=== PATIENT | female | born 1995 | race Caucasian/White ===

== ENCOUNTER 2023-04-03 08:00 | Outpatient (CLI) | payer MEDICAID ==
[2023-04-03 14:54] LABS: CHLAMYDIA TRACHOMATIS DNA NEGATIVE (NEGATIVE); NEISSERIA GONORRHOEAE DNA NEGATIVE (NEGATIVE)
[2023-04-03 17:05] LABS: BACTERIAL VAGINOSIS DNA POSITIVE (NEGATIVE); CANDIDA GLABRATA DNA NEGATIVE (NEGATIVE); CANDIDA GROUP DNA NEGATIVE (NEGATIVE); CANDIDA KRUSEI DNA NEGATIVE (NEGATIVE); TRICHOMONAS VAGINALIS DNA NEGATIVE (NEGATIVE)
== END 2023-04-03 23:59 | disposition home or self-care (01) ==
LOC: LAB.WC 08:00
PROVIDERS: ATTEND Nurse Practitioner
DX: N89.8 Other specified noninflammatory disorders of vagina (principal); Z11.3 Encounter for screening for infections with a predominantly sexual mode of transmission
CPT/HCPCS: 81514; 87491; 87591; 87661

== ENCOUNTER 2023-04-03 09:54 | Outpatient (CLI) | payer MEDICAID ==
[2023-04-03 10:10] LABS: BASOPHILS % (AUTO) 0.3 %; EOSINOPHILS # (AUTO) 0.2 10^3/uL (0.0-0.7); EOSINOPHILS % (AUTO) 2.4 %; HCT - HEMATOCRIT 36.6 % (37.0-47.0); HGB - HEMOGLOBIN 12.4 g/dL (12.0-16.0); LYMPHOCYTES # (AUTO) 1.6 10^3/uL (1.5-3.5); LYMPHOCYTES % (AUTO) 23.2 %; MEAN CORPUSCULAR HEMOGLOBIN 29.2 pg (27.0-31.0); MEAN CORPUSCULAR HGB CONC 33.9 g/dL (32.0-36.0); MEAN CORPUSCULAR VOLUME 86.1 fL (81.0-99.0); MEAN PLATELET VOLUME 10.4 fL (7.9-10.8); MONOCYTES # (AUTO) 0.5 10^3/uL (0.0-1.0); MONOCYTES % (AUTO) 7.7 %; NEUTROPHILS # (AUTO) 4.5 10^3/uL (1.5-6.6); NEUTROPHILS % (AUTO) 66.3 %; PLT - PLATELET COUNT 223 10^3/uL (130-450); RED BLOOD COUNT 4.25 10^6/uL (4.20-5.40); RED CELL DISTRIBUTION WIDTH 11.6 % (12.0-15.0); WHITE BLOOD COUNT 6.7 x10^3/uL (4.8-10.8)
[2023-04-04 04:08] LABS: RPR Non Reactive (Non Reactive)
[2023-04-04 05:13] LABS: HBsAG SCREEN Negative (Negative)
[2023-04-04 09:10] LABS: HCV AB Non Reactive (Non Reactive); HIV SCREEN 4TH GENERATION Non Reactive (Non Reactive)
[2023-04-04 10:09] LABS: VARICELLA-ZOSTER AB IGG 1443 index (Immune >165)
== END 2023-04-03 09:55 | disposition home or self-care (01) ==
LOC: LAB 09:54
PROVIDERS: ATTEND Nurse Practitioner
DX: O99.891 Other specified diseases and conditions complicating pregnancy (principal); N89.8 Other specified noninflammatory disorders of vagina
CPT/HCPCS: 36415; 81514; 85025; 86592; 86762; 86787; 86803; 86850; 86900; 86901; 87340; 87389; 87491; 87591; 87661

== ENCOUNTER 2023-04-04 07:56 | Outpatient (CLI) | payer MEDICAID ==
--- NOTE | 2023-04-04 10:10 | Ultrasound Report ---
PROCEDURE: OB First Trimester w/TV INDICATIONS: POSITIVE TEST OUTSIDE/PRIOR DATING DATA: Last menstrual period (LMP): 01/10/2023. LMP-based estimated date of delivery (KENNEDI): 10/17/2023. First dating scan (date and location): 04/04/2023. Estimated date of delivery (KENNEDI) from first dating scan: 11/06/2023. TECHNIQUE: Real-time scanning was performed of the fetus and maternal pelvic organs, with image documentation. Endovaginal scanning was also performed to better visualize the fetus and maternal ovaries. COMPARISON: None FINDINGS: Heart base 166 bpm. Gassaway-rump length is 2.4 cm, corresponding to an ultrasound age of 9 w eeks and 1 day. Yolk sac is present. IMPRESSION: Living intrauterine gestation at an ultrasound age of 9 weeks and 1 day. Please note this is not conc ordant with reported LMP and clinical correlation is necessary. Reviewed by: Horace Denney MD on 04/04/2023 10:08 AM PDT Approved by: Horace Denney MD on 04/04/2023 10:08 AM PDT Station ID: [id number]
== END 2023-04-04 07:57 | disposition home or self-care (01) ==
LOC: DI 07:56
PROVIDERS: ATTEND Nurse Practitioner
DX: Z34.91 Encounter for supervision of normal pregnancy, unspecified, first trimester (principal)

== ENCOUNTER 2023-04-10 10:29 | Outpatient (CLI) | payer MEDICAID | END 2023-04-10 10:30 | disposition home or self-care (01) | LOC: LAB 10:29 | PROVIDERS: ATTEND Nurse Practitioner | DX: Z53.9 Procedure and treatment not carried out, unspecified reason (principal) ==

== ENCOUNTER 2023-05-02 08:00 | Outpatient (CLI) | payer MEDICAID ==
[2023-05-02 20:16] LABS: BACTERIAL VAGINOSIS DNA POSITIVE (NEGATIVE); CANDIDA GLABRATA DNA NEGATIVE (NEGATIVE); CANDIDA GROUP DNA NEGATIVE (NEGATIVE); CANDIDA KRUSEI DNA NEGATIVE (NEGATIVE); TRICHOMONAS VAGINALIS DNA NEGATIVE (NEGATIVE)
== END 2023-05-02 23:59 | disposition home or self-care (01) ==
LOC: LAB.WC 08:00
PROVIDERS: ATTEND Nurse Practitioner
DX: N89.8 Other specified noninflammatory disorders of vagina (principal)
CPT/HCPCS: 81514

== ENCOUNTER 2023-05-29 08:00 | Outpatient (CLI) | payer MEDICAID ==
[2023-05-29 19:45] LABS: BACTERIAL VAGINOSIS DNA NEGATIVE (NEGATIVE); CANDIDA GLABRATA DNA NEGATIVE (NEGATIVE); CANDIDA GROUP DNA NEGATIVE (NEGATIVE); CANDIDA KRUSEI DNA NEGATIVE (NEGATIVE); TRICHOMONAS VAGINALIS DNA NEGATIVE (NEGATIVE)
== END 2023-05-29 23:59 | disposition home or self-care (01) ==
LOC: LAB.WC 08:00
PROVIDERS: ATTEND Nurse Practitioner
DX: N89.8 Other specified noninflammatory disorders of vagina (principal)
CPT/HCPCS: 81514

== ENCOUNTER 2023-06-27 08:00 | Outpatient (CLI) | payer MEDICAID ==
[2023-06-27 19:53] LABS: BACTERIAL VAGINOSIS DNA NEGATIVE (NEGATIVE); CANDIDA GLABRATA DNA NEGATIVE (NEGATIVE); CANDIDA GROUP DNA NEGATIVE (NEGATIVE); CANDIDA KRUSEI DNA NEGATIVE (NEGATIVE); TRICHOMONAS VAGINALIS DNA NEGATIVE (NEGATIVE)
== END 2023-06-27 23:59 | disposition home or self-care (01) ==
LOC: LAB.WC 08:00
PROVIDERS: ATTEND Nurse Practitioner
DX: N89.8 Other specified noninflammatory disorders of vagina (principal)
CPT/HCPCS: 81514

== ENCOUNTER 2023-07-03 07:16 | Outpatient (CLI) | payer MEDICAID ==
--- NOTE | 2023-07-03 15:31 | Ultrasound Report ---
PROCEDURE: OB Detailed Eval INDICATIONS: SUPERVISION OF OUTSIDE/PRIOR DATING DATA: Last menstrual period (LMP): 01/10/2023. LMP-based estimated date of delivery (KENNEDI): 10/17/2023. First dating scan (date and location): 04/04/2023. Estimated date of delivery (KENNEDI) from first dating scan: 11/06/2023. TECHNIQUE: Real-time scanning was performed of the fetus, with image documentation and biometric measurements. Endovaginal scanning: Not performed COMPARISON: 04/04/2023 FINDINGS: General: A single living intrauterine gestation is present. Presentation: Cephalic Placenta: Placental position is posterior, without previa. Amniotic fluid index: 16.5 cm, within normal limits for gestational age. heart rate: 148 beats per minute. Maternal cervical canal: 3.4 cm long; normal length is 2.5 cm or more. biometrics: Biparietal diameter: 5.3 cm 22 weeks 2 days Head circumference: 20.4 cm 22 weeks 4 days Abdominal circumference: 18.0 cm 22 weeks 6 days Femur length: 3.7 cm 22 weeks 0 days gestational age from initial scan: 22 weeks 0 days Composite gestational age from present scan: 22 weeks 0 days Estimated weight and percentile: 511 g, 71st percentile Measurement variability in biometric dating: +/- 10 days from 12-20 weeks gestation, +/- 2 weeks from 20-30 weeks gestation, +/- 3 weeks at 30 weeks gestation or later. Anatomic survey: Neuro: Ventricles are normal at less than 10 mm. Cisterna magna is normal at 3-11 mm. Cerebellum i s normal in size and morphology. Nuchal skin fold: Not measured due to gestational age, no overt thickening visualized Face: Nose and lips, facial profile are normal. Spine: No evidence for spina bifida. Heart: 4-chambered heart is present, with normal ventricular outflow tracts. Diaphragm: Diaphragm is intact. Stomach: Left-sided stomach is present. Kidneys: No hydronephrosis. Normal is less than 5 mm in 2nd trimester, less than 7 mm in 3rd trimester. Cord: 3 vessel cord has orthotopic insertion. Bladder: Normal in size. Extremities: All 4 extremities are visualized. IMPRESSION: 1. Single living intrauterine . 2. Normal second trimester anatomy survey. No anatomic anomalies detected at this time. Reviewed by: Jarad Hardy MD on 07/03/2023 3:30 PM PDT Approved by: Jarad Hardy MD on 07/03/2023 3:30 PM PDT Station ID: [id number]
== END 2023-07-03 07:17 | disposition home or self-care (01) ==
LOC: DI 07:16
PROVIDERS: ATTEND Nurse Practitioner Obstetrics & Gynecology
DX: Z34.02 Encounter for supervision of normal first pregnancy, second trimester (principal); Z36.89 Encounter for other specified antenatal screening

== ENCOUNTER 2023-08-18 08:02 | Outpatient (CLI) | payer MEDICAID ==
[2023-08-18 15:25] LABS: HCT - HEMATOCRIT 36.2 % (37.0-47.0); HGB - HEMOGLOBIN 11.2 g/dL (12.0-16.0); MEAN CORPUSCULAR HEMOGLOBIN 29.8 pg (27.0-31.0); MEAN CORPUSCULAR HGB CONC 30.9 g/dL (32.0-36.0); MEAN CORPUSCULAR VOLUME 96.3 fL (81.0-99.0); MEAN PLATELET VOLUME 11.4 fL (7.9-10.8); RED BLOOD COUNT 3.76 10^6/uL (4.20-5.40); RED CELL DISTRIBUTION WIDTH 12.2 % (12.0-15.0); WHITE BLOOD COUNT 9.8 x10^3/uL (4.8-10.8)
== END 2023-08-18 08:03 | disposition home or self-care (01) ==
LOC: LAB.S 08:02
PROVIDERS: ATTEND Nurse Practitioner Obstetrics & Gynecology
DX: Z36.9 Encounter for antenatal screening, unspecified (principal)
CPT/HCPCS: 36415; 82950; 85027

== ENCOUNTER 2023-11-15 14:59 | Inpatient (IN) | payer MEDICAID ==
[2023-11-15] MEDS ORDERED: TERBUTALINE 1 MG/ML VIAL SUBQ PRN (15:26)
[2023-11-15] MEDS ORDERED: hydrALAZINE INJ 20 MG/ML VIAL IVP PRN ×2 (15:26)
[2023-11-15] MEDS ORDERED: OXYTOCIN/SODIUM CHLORIDE 500 ML IV PRN (15:26)
[2023-11-15] MEDS ORDERED: miSOPROStoL 200 MCG TABLET PR PRN (15:26)
[2023-11-15] MEDS ORDERED: fentaNYL 100 MCG/2 ML VIAL IVP PRN (15:26)
[2023-11-15] MEDS ORDERED: LABETALOL 20 MG/4 ML SYRINGE IVP PRN ×3 (15:26)
[2023-11-15] MEDS ORDERED: METHYLERGONOVINE 0.2 MG/ML VIAL IM PRN (15:26)
[2023-11-15] MEDS ORDERED: miSOPROStoL 200 MCG TABLET BC PRN (15:26)
[2023-11-15] MEDS ORDERED: CARBOPROST TROMETHAMINE 250 MCG/ML AMP IM PRN (15:26)
[2023-11-15] MEDS ORDERED: SODIUM CHLORIDE FLUSH 0.9% 10 ML SYRINGE IVP PRN (15:26)
[2023-11-15] MEDS ORDERED: AMPICILLIN 2 GM in SODIUM CHLORIDE 0.9% MINIBAG 100 ML IV ONE (15:26)
[2023-11-15] MEDS ORDERED: TRANEXAMIC ACID IN NACL 1,000 MG/100 ML BAG IV PRN (15:26)
[2023-11-15] MEDS ORDERED: lidocaine 1% 20 ML MDV ID PRN (15:26)
[2023-11-15] MEDS ORDERED: NIFEdipine 10 MG CAPSULE PO PRN (15:26)
[2023-11-15] MEDS ORDERED: LACTATED RINGERS 1,000 ML IV PRN (15:26)
[2023-11-15] MEDS ORDERED: OXYTOCIN 10 UNIT/ML VIAL IM PRN (15:26)
[2023-11-15] MEDS ORDERED: diphenhydrAMINE INJ 50 MG/ML VIAL IVP PRN ×2 (15:50→20:58)
[2023-11-15 15:55] LABS: BASOPHILS % (AUTO) 0.2 %; EOSINOPHILS # (AUTO) 0.1 10^3/uL (0.0-0.7); EOSINOPHILS % (AUTO) 0.9 %; HCT - HEMATOCRIT 35.3 % (37.0-47.0); HGB - HEMOGLOBIN 11.3 g/dL (12.0-16.0); LYMPHOCYTES # (AUTO) 1.8 10^3/uL (1.5-3.5); LYMPHOCYTES % (AUTO) 14.3 %; MEAN CORPUSCULAR HEMOGLOBIN 26.2 pg (27.0-31.0); MEAN CORPUSCULAR VOLUME 81.9 fL (81.0-99.0); MEAN PLATELET VOLUME 12.5 fL (7.9-10.8); MONOCYTES # (AUTO) 0.9 10^3/uL (0.0-1.0); MONOCYTES % (AUTO) 7.3 %; NEUTROPHILS # (AUTO) 9.6 10^3/uL (1.5-6.6); NEUTROPHILS % (AUTO) 76.5 %; PLT - PLATELET COUNT 247 10^3/uL (130-450); RED BLOOD COUNT 4.31 10^6/uL (4.20-5.40); RED CELL DISTRIBUTION WIDTH 13.5 % (12.0-15.0); WHITE BLOOD COUNT 12.5 x10^3/uL (4.8-10.8)
[2023-11-15] MEDS ORDERED: SODIUM CHLORIDE FLUSH 0.9% 10 ML SYRINGE IVP SCH (16:00)
[2023-11-15] MEDS ORDERED: LACTATED RINGERS 1,000 ML IV SCH (16:00)
[2023-11-15] MEDS ORDERED: ONDANSETRON 4 MG/2 ML VIAL ONE (19:36)
[2023-11-15] MEDS ORDERED: ONDANSETRON 4 MG/2 ML VIAL IVP PRN ×2 (19:39→20:58)
--- NOTE | 2023-11-15 19:51 | HISTORY & PHYSICAL EXAMINATION ---
Admit History - Visit Reason Visit Reason: Membranes rupture - : 1 Parity: 0 Premature: 0 Ectopic: 0 : 0 Care: positive: [facility] Risk/History: positive: None Complications This : positive: Treated for GBS/UTI Smoking Status: Never smoker - Mother's Labs Mother's Blood Type: positive: O Mother's RH: positive: Positive GBS: positive: Group B Step Negative Rubella Status: positive: Immune - HPI Diagnosis/Indication for NST: Other Current EDU 11/06/23 Gestation 41 Weeks and 2 Days 1 Vital Signs Temperature 37.1 C 11/15/23 15:32 Temperature 37.1 C 11/15/23 15:32 Heart Rate Respiratory Rate Blood Pressure O2 Saturation If not protocol: Oxygen Flow, liters/minute - NST Procedure FHR baseline 140s, moderate variability, + accels, no decels Contractions palpate mild every 3-6 minutes with soft resting tone Meds/Allgy - Allergies Allergies/Adverse Reactions: Allergies Allergy/AdvReac Type Severity Reaction Status Date / Time Penicillins AdvReac Mild Hives Verified 11/15/23 15:55 Review of Systems - Constitutional Constitutional: denies: Fatigue, Fever, Chills, Malaise - Eyes Eyes: denies: Blurred vision, Spots in vision, Dipolpia - Cardiovascular Cariovascular: denies: Irregular heart rate, Palpitations, Chest pain, Edema - Respiratory Respiratory: denies: Cough, Wheezing, SOB at rest - Gastrointestinal Gastrointestinal: denies: Constipation, Diarrhea, Nausea, Vomiting - Genitourinary Genitourinary: denies: Dysuria - Integumentary Integumentary: denies: Rash, Pruritis - Neurological Neurological: denies: Headache - Psychiatric Psychiatric: denies: Depression, Anxiety Physical - Abdominal Exam Vital Signs: Temp Pulse Resp BP Pulse Ox O2 Flow Rate 37.1 C 11/15/23 15:32 Contraction Frequency (min/apart): 3-6 Contraction Intensity: positive: Mild to moderate Uterine Resting Tone: positive: Soft - Monitoring Heart Rate Baseline: 140 Strip Review: positive: Category I - Presentation Presentation: positive: Vertex - Vaginal Exam Membranes: positive: Membranes ruptured - Speculum Exam Speculum Exam Performed: positive: No Findings: positive: Gross leak Plan for Labor - Plan For Labor I expect patient to be DC'd or transferred within 96 hours.: Yes Plan for Labor: HPI: Elisabeth is a 28yo @ 41.2wks gestation by 9.1wk U/S who presented to [facility] with c/o vaginal leakage of large amount of clear fluid at 1400 this afternoon. She also reports some mild/moderate cramping that started around the same time. She denies vaginal bleeding and reports +FM. Her most recent SVE was 480/-2 and vertex 24 hours ago. SVE was deferred initially. She has been a patient of [facility] since her transfer of care from [facility] at 16 weeks gestation. She has received consistent care for the duration of her which has remained uncomplicated. She is noted to be GBS positive. She has a childhood allergy to penicillin that resulted in hives and after our discussion about prophylactic antibiotics she desires to proceed with administration of Ampicillin for GBS prophylaxis per protocol. Dating criteria: LMP 01/10/2023 -->KENNEDI by LMP 10/17/2023 Initial U/S @ 9.1wks NOT consistent with LMP dating --> KENNEDI 11/06/2023 Serial exams agree with U/S dating. 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 SAB x 0. Last pap 02/2023, WNL. Denies history of gonorrhea, chlamydia, genital herpes, oral herpes or any other STI. Sexual partner does NOT have HSV (oral or genital). Medical Hx: no significant Surgical Hx: none Social Hx: Monogamous with male partner Srikanth. Stopped drinking alcohol due to . Denies current use of tobacco, marijuana or other recreational drugs. Reports that she is safe in current relationship. 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 Family Hx: Denies family history of congenital anomalies, Cystic Fibrosis or chromosomal abnormalities. Allergies: Penicillin-hives as a child Medications: PNV course: O positive, antibody negative Rubella immune, varicella immune HIV non-reactive, Hep B non-reactive Hep C non-reactive, RPR non-reactive Initial U/S @ 9.1wks not consistent with LMP dating and dates with KENNEDI 11/06/2023 FAS WNL. Posterior placenta, no previa. Size c/w dating (EFW 71%tile). 3VC. SATYA WNL. 1hr glucola 100 Covid - declined Influenza - declined Tdap - declined RSV - declined GBS POSITIVE Physical exam: Normocephalic, atraumatic Heart RRR w/o M/G/R Lungs CTAB Abdomen gravid, soft, nontender EFW 3400g FHR baseline 140s, moderate variability, + accels, no decels Contractions palpate mild every 2-6 minutes with soft resting tone SVE deferred Bilateral LE's no edema Mood is good Assessment: 28yo @ 41.2wks gestation by 9.1wk U/S Postdates Early labor GBS Positive FHR Category I Plan: Admit to [facility] for expectant management. Initiate Ampicillin for GBS prophylaxis per protocol with benadryl at the bedside for administration PRN allergic reaction. Jacuzzi PRN. Nitrous oxide PRN. Epidural per maternal request. Intermittent heart rate auscultation. Anticipate .
--- NOTE | 2023-11-15 19:55 | PROVIDER PROGRESS NOTE ---
Labor Progress Note - Uterine Monitoring Uterine Monitoring Mode: positive: External toco Contraction Frequency (min/apart): 2-4 Contraction Intensity: positive: Strong Uterine Resting Tone: positive: Soft - Monitoring Monitor Mode: positive: External ultrasound Heart Rate Baseline: 140 Decelerations: positive: None - Vaginal Exam Dilation (in cm): 6 Effacement (%): 100 Station: -1 Cervical Position: Posterior - Labor Progress Note Labor Progress Note/Additional Text: S: Breathing and crying through contractions which have increased in intensity since her arrival. She requests an epidural for pain management and anesthesia has been notified. Her is supportive at the bedside. O: FHR 140s, no audible decelerations noted on doppler SVE 6/100/-1, vertex. A: 28yo @ 41.2wks gestation by 9.1wk U/S Active labor Postdates GBS positive P: Anesthesia notified for placement of epidural for pain management. Initiate continuous monitoring now. Continue ampicillin for GBS prophylaxis per protocol. Will encouraged rotation in bed on peanut ball after patient is comfortable with epidural. Anticipate .
[2023-11-15] MEDS ORDERED: LIDOCAINE 2%-EPI 1:100000 20 ML MDV ONE (19:58)
[2023-11-15] MEDS ORDERED: ROPIVACAINE 0.2% 200 MG/100 ML BAG EP ONE (19:59)
[2023-11-15] MEDS ORDERED: AMPICILLIN 1 GM in SODIUM CHLORIDE 0.9% MINIBAG 100 ML IV SCH (20:00)
[2023-11-15] MEDS ORDERED: ePHEDrine 50 MG/ML VIAL IVP PRN (20:58)
[2023-11-15] MEDS ORDERED: NALOXONE 0.4 MG/ML VIAL IVP PRN (20:58)
[2023-11-15] MEDS ORDERED: ROPIVACAINE 0.2% 200 MG/100 ML BAG EP PRN (20:58)
[2023-11-15] MEDS ORDERED: LACTATED RINGERS 500 ML IV ONE (20:58)
[2023-11-15] MEDS ORDERED: NALBUPHINE 10 MG/ML AMP IVP PRN (20:58)
[2023-11-15] MEDS ORDERED: METOCLOPRAMIDE 10 MG/2 ML VIAL IVP PRN (20:58)
--- NOTE | 2023-11-15 21:01 | ANESTHESIA ---
Pre-Anesthesia VS, & Labs - Diagnosis labor induction - Procedure labor epidural Vital Signs: Temp Pulse Resp BP Pulse Ox O2 Flow Rate 37.1 C 11/15/23 15:32 Height: 5 ft 10 in Weight (kg): 81.647 kg Body Mass Index: 25.8 BMI Classification: Overweight - NPO Other (clears) - Is Patient ?: Yes - Lab Results Current Lab Results: Laboratory Tests 11/15/23 16:26: Blood Type O POSITIVE, Antibody Screen NEGATIVE 11/15/23 15:30: WBC 12.5 H, RBC 4.31, Hgb 11.3 L, Hct 35.3 L, MCV 81.9, MCH 26.2 L, MCHC 32.0, RDW 13.5, Plt Count 247, MPV 12.5 H, Neut # (Auto) 9.6 H, Lymph # (Auto) 1.8, [place] # (Auto) 0.9, Eos # (Auto) 0.1, Baso # (Auto) 0.0, Absolute Nucleated RBC 0.00, Nucleated RBC % 0.0 11/15/23 15:30: Blood Type Cancelled, Antibody Screen Cancelled Fish Bones: 11/15/23 15:30 Home Medications and Allergies Active Medications Carboprost Tromethamine (Carboprost Tromethamine 250 Mcg/Ml Amp) 250 mcg IM .ONCE PRN PRN Reason: Hemorrhage Diphenhydramine HCl (Diphenhydramine Inj 50 Mg/Ml Vial) 25 mg IVP Q6H PRN PRN Reason: Allergy Symptoms Diphenhydramine HCl (Diphenhydramine Inj 50 Mg/Ml Vial) 12.5 - 25 mg IVP Q6HR PRN PRN Reason: ITCHING Ephedrine Sulfate (Ephedrine 50 Mg/Ml Vial) 5 mg IVP Q5M PRN PRN Reason: For SBP<100;give until SBP>100 Fentanyl (Fentanyl 100 Mcg/2 Ml Vial) 50 mcg IVP Q1H PRN PRN Reason: Severe Pain (score 7-10) Hydralazine HCl (Hydralazine Inj 20 Mg/Ml Vial) 5 - 10 mg IVP Q20M PRN; Protocol PRN Reason: SBP> or= 160 OR DBP> or= 110 Hydralazine HCl (Hydralazine Inj 20 Mg/Ml Vial) 10 mg IVP .ONCE PRN; Protocol PRN Reason: SBP> or= 160 OR DBP> or= 110 Lactated Ringer's (Lr) 500 mls @ 999 mls/hr IV PRN PRN PRN Reason: distress Oxytocin/Sodium Chloride (Pitocin/Sodium Chloride) 500 mls @ 999 mls/hr IV PRN PRN; Protocol PRN Reason: POST- HEMORR PREVENTION Tranexamic Acid (Tranexamic 1,000 Mg/100ml-Nacl) 1,000 mg in 100 mls @ 600 mls/hr IV Q30M PRN PRN Reason: EBL >1200mL and within 3hr Lactated Ringer's (Lr) 1,000 mls @ 125 mls/hr IV .Q8H [facility] Last Admin: 11/15/23 16:20 Dose: 125 mls/hr Ampicillin Sodium 1 gm/ Sodium (Chloride) 100 mls @ 200 mls/hr IV Q4H [facility] Last Admin: 11/15/23 20:23 Dose: 200 mls/hr Lactated Ringer's (Lr) 500 mls @ 999 mls/hr IV ONCE ONE Stop: 11/15/23 21:28 Ropivacaine (Naropin 0.2%) 200 mg in 100 mls @ 0 mls/hr EP PRN PRN; Protocol PRN Reason: PAIN Labetalol HCl (Labetalol 20 Mg/4 Ml Syringe) 20 - 80 mg IVP Q10M PRN; Protocol PRN Reason: SBP> or= 160 OR DBP> or= 110 Labetalol HCl (Labetalol 20 Mg/4 Ml Syringe) 20 mg IVP .ONCE PRN; Protocol PRN Reason: SBP> or= 160 OR DBP> or= 110 Labetalol HCl (Labetalol 20 Mg/4 Ml Syringe) 20 - 40 mg IVP Q10M PRN; Protocol PRN Reason: SBP> or= 160 OR DBP> or= 110 Lidocaine HCl (Lidocaine 1% 20 Ml Mdv) 20 ml ID .ONCE PRN PRN Reason: PERINEAL REPAIR Stop: 11/18/23 15:26 Methylergonovine Maleate (Methylergonovine 0.2 Mg/Ml Vial) 0.2 mg IM .ONCE PRN PRN Reason: Hemorrhage Metoclopramide HCl (Metoclopramide 10 Mg/2 Ml Vial) 10 mg IVP Q6HR PRN PRN Reason: Nausea / Vomiting Misoprostol (Misoprostol 200 Mcg Tablet) 600 mcg BC .ONCE PRN PRN Reason: Hemorrhage Misoprostol (Misoprostol 200 Mcg Tablet) 800 mcg NC .ONCE PRN PRN Reason: Hemorrhage Nalbuphine HCl (Nalbuphine 10 Mg/Ml Amp) 2.5 - 5 mg IVP Q4H PRN PRN Reason: ITCHING Naloxone HCl (Naloxone 0.4 Mg/Ml Vial) 0.1 mg IVP Q2M PRN PRN Reason: RR<8 Nifedipine (Nifedipine 10 Mg Capsule) 10 - 20 mg PO Q20M PRN; Protocol PRN Reason: SBP> or= 160 OR DBP> or= 110 Ondansetron HCl (Ondansetron 4 Mg/2 Ml Vial) 4 mg IVP Q4HR PRN PRN Reason: Nausea / Vomiting Last Admin: 11/15/23 19:25 Dose: 4 mg Ondansetron HCl (Ondansetron 4 Mg/2 Ml Vial) 4 mg IVP Q6HR PRN PRN Reason: Nausea / Vomiting Oxytocin (Oxytocin 10 Unit/Ml Vial) 10 unit IM .ONCE PRN PRN Reason: Step One if no IV access. Sodium Chloride (Sodium Chloride Flush 0.9% 10 Ml Syringe) 10 ml IVP PRN PRN PRN Reason: NEEDED PER PROVIDER ORDERS Sodium Chloride (Sodium Chloride Flush 0.9% 10 Ml Syringe) 10 ml IVP Q8H TIO Terbutaline Sulfate (Terbutaline 1 Mg/Ml Vial) 0.25 mg SUBQ .ONCE PRN PRN Reason: Tachystole Allergies/Adverse Reactions: Allergies Allergy/AdvReac Type Severity Reaction Status Date / Time Penicillins AdvReac Mild Hives Verified 11/15/23 15:55 Anes History & Medical History - Medical History Smoking Status: Never smoker - Obstetrical History : 1 Parity: 0 Events: reports: None Complications: reports: Treated for GBS/UTI Exam General: Alert, Oriented x3 Dental: WNL Mouth Opening: Greater than 4 Fingerbreadths Neck Mobility: Normal Mallampati classification: II Thyromental Distance: greater than 6 cm Respiratory: Lungs clear Cardiovascular: Regular rate Plan Anesthesia Type: Epidural Consent for Procedure(s) Verified and Reviewed: Yes Code Status: Attempt Resuscitation ASA classification: 2-Mild systemic disease Is this case an emergency?: Yes
--- NOTE | 2023-11-15 22:29 | DELIVERY NOTE ---
Delivery Note - Labor Labor: positive: Spontaneous - Delivery Method Delivery Method: positive: Spontaneous vaginal delivery - Presentation Presentation: positive: Vertex, MATEUS - left occiput anterior - Nuchal Cord Nuchal Cord: positive: None - Amniotic Fluid Description Amniotic Fluid Description: positive: Clear - Episiotomy Type Episiotomy Type: positive: None - Laceration Laceration: positive: 1st degree, Vaginal - Delivery Outcome Delivery Outcome: positive: Livebirth - [place]: positive: Placed in direct skin contact with mother, Bulb syringe, Stimulated, Warmed, [place] used, Warmer used - Cord Cord: positive: 3 vessels - Placenta Placenta: positive: Intact, Spontaneous - Estimated Blood Loss Estimated Blood Loss (in cc): 200 - Post Delivery Events Post Delivery Events: positive: No post delivery events - Delivery Comments (Free Text/Narrative) Delivery Comments (Free Text/Narrative): Labor: This 28yo @ 41.2wks gestation by 9.1wk U/S presented to [facility] on 11/15/2023 in early labor with c/o vaginal leakage of clear fluid that occurred 11/15/2023 @ 1400. Cervical exam was deferred upon arrival initially. FHR pattern demonstrated a Category I pattern throughout labor. Normal labor course. Epidural was placed per maternal request. Pt progressed to c/c/+1 @ 2056. : Normal SVB of viable female on 11/15/2023 @ 2152. No nuchal cord. The was placed on maternal abdomen, stimulated, dried, and placed skin to skin. Apgars were 8/8 at 1 and 5 minutes respectively. The patient declined active management of the third stage. The umbilical cord was allowed to stop pulsating at which time it was doubly clamped by CNM and cut by FOB. 3VC. Cord blood was obtained. Fundal massage and gentle cord traction applied for active management of the third stage with no pitocin IV per patient request. Placenta delivered spontaneously and intact at 2159. EBL 200mL. Fourth stage: Uterine fundus firm and there is no excessive bleeding. The franklyn neum, vagina, and cervix were inspected and found to have minor 1st degree vaginal laceration which was hemostatic and left unrepaired. Tissues well approximated. Skin to skin contact initiated. Family bonding well. Both mother and baby were left in stable condition.
[2023-11-15] MEDS ORDERED: HYDROCORTISONE 1% CREAM 28 GM TUBE PR PRN (22:31)
[2023-11-15] MEDS ORDERED: WITCH HAZEL/GLYCERIN 1 PAD TOP PRN (22:31)
[2023-11-16] MEDS: IBUPROFEN 800 MG TABLET PO SCH ×3 (05:18→17:44)
[2023-11-16] MEDS: ACETAMINOPHEN 500 MG TABLET PO SCH ×3 (05:20→22:27)
--- NOTE | 2023-11-16 14:00 | PROVIDER PROGRESS NOTE ---
Subjective - Subjective Subjective: S: Bonding well with her baby. without difficulty. Bleeding is decreased and is light. Pain well controlled wit oral medications. She is urinating without difficulty. Srikanth is supportive at the bedside. O: heart RRR w/o M/G/R, lungs CTAB, abdomen soft and nontender wit fundus firm and U, perineum intact, light locia rubra, bilateral LE's no edema. Mood is go od. A: 28yo -->P1 PPD#1 s/p TSVB viable female infant Normal recovery P: Continue routine care and medications. Evaluate for discharge home tomorrow. Objective - Vital Signs/Intake & Output Vital Signs: Vital Signs x48h Temp Pulse Resp BP Pulse Ox 11/16/23 10:51 36.0 C L 65 16 91/52 L 96 Intake & Output: Intake & Output 11/13/23 11/14/23 11/15/23 11/16/23 23:59 23:59 23:59 23:59 Output Total 1200 Balance -1200 - Lab Results Fish Bones: 11/15/23 15:30 Other Labs: Lab Results x24hrs 11/15/23 11/15/23 11/15/23 Range/Units 16:26 15:30 15:30 WBC 12.5 H (4.8-10.8) x10^3/uL RBC 4.31 (4.20-5.40) 10^6/uL Hgb 11.3 L (12.0-16.0) g/dL Hct 35.3 L (37.0-47.0) % MCV 81.9 (81.0-99.0) fL MCH 26.2 L (27.0-31.0) pg MCHC 32.0 (32.0-36.0) g/dL RDW 13.5 (12.0-15.0) % Plt Count 247 (130-450) 10^3/uL MPV 12.5 H (7.9-10.8) fL Neut # (Auto) 9.6 H (1.5-6.6) 10^3/uL Lymph # (Auto) 1.8 (1.5-3.5) 10^3/uL [place] # (Auto) 0.9 (0.0-1.0) 10^3/uL Eos # (Auto) 0.1 (0.0-0.7) 10^3/uL Baso # (Auto) 0.0 (0.0-0.1) 10^3/uL Absolute Nucleated RBC 0.00 x10^3/uL Nucleated RBC % 0.0 /100WBC Blood Type O POSITIVE Cancelled Antibody Screen NEGATIVE Cancelled
[2023-11-16] MEDS: diphenhydrAMINE 25 MG CAPSULE PO PRN ×2 (16:26→20:12)
[2023-11-16] MEDS: DOCUSATE SODIUM 100 MG CAPSULE PO SCH (16:39)
[2023-11-17] MEDS: IBUPROFEN 800 MG TABLET PO SCH ×2 (00:18→05:58)
[2023-11-17] MEDS: ACETAMINOPHEN 500 MG TABLET PO SCH (05:57)
--- NOTE | 2023-11-17 07:55 | Discharge Plan ---
Discharge Plan Problem Reviewed?: Yes Disposition: Home, Self Care Condition: Good Diet: Regular Activity Restrictions: No Restrictions Shower Restrictions: No Driving Restrictions: No Weight Bearing: Full Weight Instruction Topics: Vaginal After, Breastfeed Holds, Nutrition , Self Care No Smoking: If you smoke, Please STOP! Call for help. Follow-up with: Olive Felder CNM, [facility] [Provider Admit Priv/Credential] -
--- NOTE | 2023-11-17 08:02 | DISCHARGE SUMMARY ---
Discharge Summary Condition at Discharge: Good Discharge Disposition: 01 Home, Self Care - HOSPITAL COURSE Hospital Course: Date of Admission: 11/15/2023 Date of Discharge: 11/17/2023 Diagnosis on Admission: 1. 28yo @ 41.2wks gestation by 9.1wk U/S 2. Postdates 3. Early labor 4. GBS Positive 5. FHR Category I Date of Discharge: 1. 28yo PPD#2 s/p TSVB viable female 2. 1st degree vaginal laceration hemostatic and well approximated, no repair 3. 4. Normal recovery Brief History: She is a patient of [facility] who presented on 11/15/2023 with c/o vaginal leakage of clear fluid that started 11/15/2023 @ 1400. She was initially experiencing menstrual-like cramping that spontaneously progressed to active labor shortly after her arrival to [facility]. SVE was initially deferred. Epidural was placed per maternal request. She proceeded to spontaneously deliver a viable female infant on 11/15/2023 at 2152. Apgars were 8/8 at 1 and 5 minutes respectively. EBL 200mL. 1st degree vaginal laceration was hemostatic and left unrepaired. She has been doing well in her course. She is ambulating and tolerating a regular diet. She is urinating without difficulty and her lochia is normal. Her pain is well controlled with oral medications. She is without difficulty and bonding well with her baby. She will be discharged home today on day #2 with instructions to continue taking her vitmain while and to continue taking ibuprofen and tylenol over the counter as needed for pain management. She intends to follow up with myself at [facility] in 1 week for routine visit or sooner if needed. She has been given precautions to call if she has any worsening fevers, chills, abdominal pain, increased vaginal bleeding or foul smelling vaginal lo miles. Physical exam: Normocephalic, atraumatic. Heart RRR w/o M/R/G, lungs CTAB, abdomen soft, non- tender, fundus firm at U-1, perineum intact, light lochia rubra, bilateral LE's no edema. Mood is good. Srikanth is supportive at the bedside. - ALLERGIES Allergies/Adverse Reactions: Allergies Allergy/AdvReac Type Severity Reaction Status Date / Time Penicillins AdvReac Mild Hives Verified 11/15/23 15:55 - LABS Result Diagrams: 11/15/23 15:30
[2023-11-17 08:08] VITALS: BP 100/56; O2SAT 100
[2023-11-17] MEDS: DOCUSATE SODIUM 100 MG CAPSULE PO SCH (08:10)
--- NOTE | 2023-11-17 13:31 | Labor Flowsheet ---
Labor Flowsheet Datetime Report Generated by CPN: 11/17/2023 13:31 Datetime: 11/16/2023 00:55 VITAL SIGNS NBP Sys/Erlinda/Mean (mmHg): 106 : 51 : 62 Pulse: 75 LaborFlag: Labor Datetime: 11/16/2023 00:54 SpO2 (%): 98 Datetime: 11/15/2023 21:45 UTERINE ACTIVITY Monitor Mode: External Monitor Interventions for UA: [place] Adjusted Frequency (min): 2-4 Quality: Strong Duration (sec): 40-110 Pattern: Normal: <= 5 Contractions in 10 Minutes Resting Tone (Palpate): Relaxed ASSESSMENT A Monitor Mode: External US FHR Baseline Rate : 135 Variability: Moderate 6-25 bpm Accelerations: 15X15 Decelerations: Early; Variable Category: Category II Datetime: 11/15/2023 21:29 STAGE 2 Pushing: Coached on Pushing Pushing Position: Pushing with Contractions Pushing Progress: Descent with Pushing; Pushing Effectively with Contractions Datetime: 11/15/2023 20:30 Epidural Procedure: Loading Dose Epidural Procedure Other: Pump Started Datetime: 11/15/2023 20:12 ANESTHESIA Anesthesia Plans: Epidural Datetime: 11/15/2023 20:11 PROCEDURE TIME OUT Procedure Verify: Correct Patient Identity; Correct Side and Site are Marked; Accurate Procedure Co nsent Form; Agreement on Procedure to be Done; Correct Patient Position; Relevant Images and Results are Properly Labeled and Displayed; Addressed Need to Administer Antibiotics or Fluids for Irrigation ; Safety Precautions Based on Patient History or Medication Use Datetime: 11/15/2023 20:08 PATIENT CARE Patient Care Comments: periods of broken tracing due to pt sitting up for epidural Datetime: 11/15/2023 15:25 VAGINAL EXAM Membranes Ruptured Date/Time: 11/15/2023 14:00 Membranes Rupture Method: Spontaneous Amniotic Fluid Color: Clear Amniotic Fluid Amount: Small Amniotic Fluid Odor: Normal Datetime: 11/15/2023 15:02 Stage of : Labor COMMUNICATION Communication Comments:
== END 2023-11-17 10:00 | disposition home or self-care (01) | DRG 807 ==
LOC: WFO 14:59 → FBP 15:00 → WFO 21:54 → FBP 11-16 20:56
PROVIDERS: ADMIT Nurse Practitioner Obstetrics & Gynecology; ATTEND Nurse Practitioner Obstetrics & Gynecology
PROC: 10E0XZZ Delivery of Products of Conception, External Approach (ICD-10-PCS; principal; 2023-11-15)
DX: O48.0 Post-term pregnancy (principal); Z37.0 Single live birth; Z3A.41 41 weeks gestation of pregnancy; O70.0 First degree perineal laceration during delivery; O99.824 Streptococcus B carrier state complicating childbirth; Z88.0 Allergy status to penicillin
CPT/HCPCS: 59409; 85025; 86850; 86900; 86901; A9270; J7120

== ENCOUNTER 2024-07-22 08:00 | Outpatient (CLI) | payer MEDICAID ==
[2024-07-23 00:46] LABS: BACTERIAL VAGINOSIS DNA NEGATIVE (NEGATIVE); CANDIDA GLABRATA DNA NEGATIVE (NEGATIVE); CANDIDA GROUP DNA POSITIVE (NEGATIVE); CANDIDA KRUSEI DNA NEGATIVE (NEGATIVE); TRICHOMONAS VAGINALIS DNA NEGATIVE (NEGATIVE)
== END 2024-07-22 23:59 | disposition home or self-care (01) ==
LOC: LAB.WC 08:00
PROVIDERS: ATTEND Nurse Practitioner
DX: N89.8 Other specified noninflammatory disorders of vagina (principal)
CPT/HCPCS: 81514